=== PATIENT | female | born 1995 | race Caucasian/White ===

== ENCOUNTER 2017-12-28 09:49 | Inpatient (IN) | payer OTHER ==
[~2017-12-28] VITALS: Ht 160 cm; Wt 62.0 kg
[2017-12-28 09:52] VITALS: Ht 160 cm; Wt 62.0 kg
[2017-12-28 10:56] LABS: BASOPHIL % 0.3 % (0-2); PLATELET COUNT 266 x10^3mcL (130-400)
[2017-12-28 10:58] LABS: RED CELL DISTRIBUTION WIDTH 15.6 % (11.5-14.5)
[2017-12-28 11:30] LABS: T3 TOTAL 1.04 ng/mL
[2017-12-28 11:45] LABS: FREE T4 1.02 ng/dL (0.76-1.46); T4(THYROXINE) 8.2 ug/dL (4.7-13.3)
[2017-12-28 11:58] LABS: CALCIUM 8.8 mg/dL (8.5-10.1); CARBON DIOXIDE 26.2 mmol/L (21-32); CHLORIDE SERUM 107 mmol/L (98-107); CREATININE SERUM 0.8 mg/dL (0.6-1.0); GFR1 > 60 mL/min; GLUCOSE SERUM 90 mg/dL (74-106); POTASSIUM SERUM 4.6 mmol/L (3.5-5.1); SODIUM SERUM 142 mmol/L (136-145)
[2017-12-28 12:02] LABS: ALBUMIN 4.1 g/dL (3.4-5.0); ALKALINE PHOSPHATASE 54 U/L (46-116); ALT/SGPT 21 U/L (14-59); AST/SGOT 14 U/L (15-37); BILIRUBIN TOTAL 0.35 mg/dL (0.20-1.00); LIPASE 154 IU/L (73-393); TOTAL PROTEIN, SERUM 8.2 g/dL (6.4-8.2)
[2017-12-28 12:05] LABS: HDL CHOLESTEROL 73 mg/dL (40-60)
[2017-12-28 12:07] LABS: CHOLESTEROL 181 mg/dL (<200); CHOLESTEROL/HDL RATIO 2.5; TRIGLYCERIDES 43 mg/dL (<150)
[2017-12-28 14:13] LABS: MAGNESIUM 2.2 mg/dL (1.8-2.4); PHOSPHOROUS 3.6 mg/dL (2.5-4.9)
[2017-12-28 14:23] VITALS: BP 117/71
[2017-12-28 15:20] LABS: AMPHETAMINE QUAL UR NONE DETECTED (See below)
[2017-12-28 16:20] LABS: microscopic required? YES; urine erythrocyte NEGATIVE (NEGATIVE)
[2017-12-28 20:36] VITALS: BP 110/59
[2017-12-29 05:22] VITALS: BP 129/55
[2017-12-29 06:17] LABS: BASOPHIL % 0.6 % (0-2); PLATELET COUNT 208 x10^3mcL (130-400)
[2017-12-29 06:31] LABS: CALCIUM 7.6 mg/dL (8.5-10.1); CARBON DIOXIDE 24.2 mmol/L (21-32); CHLORIDE SERUM 109 mmol/L (98-107); CREATININE SERUM 0.7 mg/dL (0.6-1.0); GFR1 > 60 mL/min; GLUCOSE SERUM 75 mg/dL (74-106); POTASSIUM SERUM 3.8 mmol/L (3.5-5.1); SODIUM SERUM 141 mmol/L (136-145)
[2017-12-29 07:09] LABS: RED CELL DISTRIBUTION WIDTH 15.9 % (11.5-14.5)
[2017-12-29 13:53] VITALS: BP 104/55
[2017-12-29 17:02] VITALS: BP 104/55
== END 2017-12-29 17:30 | disposition home or self-care (01) | DRG 756 ==
LOC: ED 09:49 → DU 13:21
PROVIDERS: Family Medicine; Specialist
DX: F41.9 Anxiety disorder, unspecified (principal); E78.5 Hyperlipidemia, unspecified; Z53.29 Procedure and treatment not carried out because of patient's decision for other reasons; Z68.23 Body mass index [BMI] 23.0-23.9, adult; Z82.49 Family history of ischemic heart disease and other diseases of the circulatory system; Z72.89 Other problems related to lifestyle
CPT/HCPCS: 83880; 84439; G0480; J7030; Q9967

== ENCOUNTER 2018-01-31 21:16 | Inpatient (IN) | payer OTHER ==
[~2018-01-31] VITALS: Ht 160 cm; Wt 61.7 kg
[2018-01-31 21:48] VITALS: Ht 160 cm; Wt 61.7 kg
[2018-01-31 22:22] LABS: BASOPHIL % 0.4 % (0-2); PLATELET COUNT 218 x10^3mcL (130-400)
[2018-01-31 22:25] LABS: RED CELL DISTRIBUTION WIDTH 16.2 % (11.5-14.5)
[2018-01-31 22:36] LABS: CALCIUM 7.6 mg/dL (8.5-10.1); CARBON DIOXIDE 24.7 mmol/L (21-32); CHLORIDE SERUM 104 mmol/L (98-107); CREATININE SERUM 0.9 mg/dL (0.6-1.0); GFR1 > 60 mL/min; GLUCOSE SERUM 146 mg/dL (74-106); POTASSIUM SERUM 3.7 mmol/L (3.5-5.1); SODIUM SERUM 138 mmol/L (136-145)
[2018-01-31 22:40] LABS: ALBUMIN 3.7 g/dL (3.4-5.0); ALKALINE PHOSPHATASE 48 U/L (46-116); ALT/SGPT 13 U/L (14-59); AMYLASE 65 U/L (25-115); AST/SGOT 9 U/L (15-37); BILIRUBIN TOTAL 0.4 mg/dL (0.20-1.00); LIPASE 116 IU/L (73-393); TOTAL PROTEIN, SERUM 6.8 g/dL (6.4-8.2)
[2018-01-31 23:38] LABS: PLATELET COUNT 207 x10^3mcL (130-400)
[2018-01-31 23:39] LABS: BASOPHIL % 0 % (0-2); RED CELL DISTRIBUTION WIDTH 16.5 % (11.5-14.5)
[2018-02-01] VITALS (9 sets, daily range): BP systolic 92–133; BP diastolic 46–81
[2018-02-01 09:06] LABS: PLATELET COUNT 140 x10^3mcL (130-400)
[2018-02-01 09:08] LABS: BASOPHIL % 0 % (0-2); RED CELL DISTRIBUTION WIDTH 16.8 % (11.5-14.5)
[2018-02-01 09:27] LABS: IRON 30 ug/dL (50-170); TOTAL IRON BINDING CAPACITY 278 ug/dL (250-450)
[2018-02-01 09:29] LABS: AMYLASE 45 U/L (25-115); CALCIUM 7.1 mg/dL (8.5-10.1); CARBON DIOXIDE 22.4 mmol/L (21-32); CHLORIDE SERUM 109 mmol/L (98-107); CREATININE SERUM 0.7 mg/dL (0.6-1.0); GFR1 > 60 mL/min; GLUCOSE SERUM 133 mg/dL (74-106); LIPASE 104 IU/L (73-393); MAGNESIUM 1.4 mg/dL (1.8-2.4); PHOSPHOROUS 3.2 mg/dL (2.5-4.9); POTASSIUM SERUM 4.3 mmol/L (3.5-5.1); SODIUM SERUM 139 mmol/L (136-145)
[2018-02-01 10:55] LABS: RED BLOOD CELLS 2.97 M/mm3 (4.10-5.10)
[2018-02-01 11:32] LABS: microscopic required? NO
[2018-02-01 11:52] LABS: urine erythrocyte NEGATIVE (NEGATIVE)
[2018-02-01 17:01] LABS: BASOPHIL % 0.3 % (0-2); PLATELET COUNT 148 x10^3mcL (130-400); RED CELL DISTRIBUTION WIDTH 17.4 % (11.5-14.5)
[2018-02-02 05:47] VITALS: BP 103/54
[2018-02-02 06:28] LABS: BASOPHIL % 0.4 % (0-2); PLATELET COUNT 147 x10^3mcL (130-400)
[2018-02-02 06:39] LABS: CALCIUM 7.1 mg/dL (8.5-10.1); CHLORIDE SERUM 108 mmol/L (98-107); CREATININE SERUM 0.7 mg/dL (0.6-1.0); GFR1 > 60 mL/min; GLUCOSE SERUM 88 mg/dL (74-106); MAGNESIUM 2.8 mg/dL (1.8-2.4); PHOSPHOROUS 2.7 mg/dL (2.5-4.9); POTASSIUM SERUM 3.6 mmol/L (3.5-5.1); SODIUM SERUM 139 mmol/L (136-145)
[2018-02-02 11:18] VITALS: BP 96/52
[2018-02-02 13:22] VITALS: BP 101/53
[2018-02-02 13:37] VITALS: BP 95/56
[2018-02-02 18:18] VITALS: BP 102/62
[2018-02-02 21:31] VITALS: BP 103/60
[2018-02-03 05:56] VITALS: BP 114/51
[2018-02-03 07:11] LABS: CALCIUM 7.6 mg/dL (8.5-10.1); CARBON DIOXIDE 27.2 mmol/L (21-32); CHLORIDE SERUM 110 mmol/L (98-107); CREATININE SERUM 0.6 mg/dL (0.6-1.0); GFR1 > 60 mL/min; GLUCOSE SERUM 85 mg/dL (74-106); MAGNESIUM 1.9 mg/dL (1.8-2.4); POTASSIUM SERUM 3.7 mmol/L (3.5-5.1); SODIUM SERUM 143 mmol/L (136-145)
[2018-02-03 07:46] LABS: BASOPHIL % 0.3 % (0-2); PLATELET COUNT 144 x10^3mcL (130-400)
[2018-02-03 08:37] VITALS: BP 107/54
[2018-02-03 11:38] VITALS: BP 107/49
[2018-02-03] MEDS ORDERED: VITC PO (11:53)
[2018-02-03] MEDS ORDERED: FER300 PO (11:53)
[2018-02-03] MEDS ORDERED: APAP/HYDROCODON1 T13 PO (11:54)
[2018-02-03] MEDS ORDERED: COLACE100 MG PO (11:54)
[2018-02-03 14:05] VITALS: BP 107/49
[2018-02-03 18:21] VITALS: BP 113/71
== END 2018-02-03 20:58 | disposition home or self-care (01) | DRG 545 ==
LOC: ED 21:16 → DU 23:27 → EDBEDREQ 23:45 → EDBEDREQSVC 23:45 → EDBEDREQTM 23:45 → DU 02-01 00:35
PROVIDERS: Emergency Medicine; Family Medicine
PROC: 0UB10ZZ Excision of Left Ovary, Open Approach (ICD-10-PCS; principal; 2018-01-31)
PROC: 10T20ZZ Resection of Products of Conception, Ectopic, Open Approach (ICD-10-PCS; 2018-01-31)
PROC: 0UT50ZZ Resection of Right Fallopian Tube, Open Approach (ICD-10-PCS; 2018-01-31)
PROC: 30233N1 Transfusion of Nonautologous Red Blood Cells into Peripheral Vein, Percutaneous Approach (ICD-10-PCS; 2018-02-01)
DX: O00.101 Right tubal pregnancy without intrauterine pregnancy (principal); D62 Acute posthemorrhagic anemia; E83.42 Hypomagnesemia; N83.202 Unspecified ovarian cyst, left side; Z68.23 Body mass index [BMI] 23.0-23.9, adult; F41.9 Anxiety disorder, unspecified; Z82.49 Family history of ischemic heart disease and other diseases of the circulatory system; E83.51 Hypocalcemia
CPT/HCPCS: 94150; J0330; J0690; J0696; J1170; J2250; J2270; J2405; J2710; J2916; J3010; J3475; J3490; J7030; J7040; J7120; P9016; Q0092

== ENCOUNTER 2018-11-15 16:54 | Emergency (ER) | payer OTHER ==
[~2018-11-15] VITALS: Ht 160 cm; Wt 57.6 kg
[~2018-11-15 16:54] MED LIST: APAP/HYDROCODON1 T13 PO; COLACE100 MG PO; FER300 PO; VITC PO
[2018-11-15 17:13] VITALS: Ht 160 cm; Wt 57.6 kg
[2018-11-15 19:24] VITALS: BP 113/57
== END 2018-11-15 19:24 | disposition home or self-care (01) ==
LOC: ED 16:54
DX: S06.0X0A Concussion without loss of consciousness, initial encounter (principal); S16.1XXA Strain of muscle, fascia and tendon at neck level, initial encounter; F41.9 Anxiety disorder, unspecified; W18.39XA Other fall on same level, initial encounter; Y93.89 Activity, other specified; Y92.89 Other specified places as the place of occurrence of the external cause; Y99.8 Other external cause status